=== PATIENT | female | born 1945 | race Caucasian/White ===

== ENCOUNTER 2018-01-31 13:47 | Emergency (ER) | payer MEDICARE ==
[~2018-01-31] VITALS: Ht 172.7 cm; Wt 72.7 kg
[2018-01-31 14:20] VITALS: Ht 172.7 cm; Wt 72.7 kg
[2018-01-31] MEDS ORDERED: POTASSIUM99 M1 PO (14:25)
[2018-01-31] MEDS ORDERED: NIACIN100 MG PO (14:27)
[2018-01-31] MEDS ORDERED: METOPROLOL TART25 MG PO (14:27)
[2018-01-31] MEDS ORDERED: ASPIRIN81 MG PO (14:28)
[2018-01-31] MEDS ORDERED: SYNTHROID50 MCG PO (14:28)
[2018-01-31] MEDS ORDERED: HYDROCODONE-APA1 TAB PO (16:29)
[2018-01-31 17:22] VITALS: BP 129/76
== END 2018-01-31 17:00 | disposition home or self-care (01) ==
LOC: D.ER 13:47
DX: S82.892A Other fracture of left lower leg, initial encounter for closed fracture (principal); W18.31XA Fall on same level due to stepping on an object, initial encounter; Y93.89 Activity, other specified; Y92.481 Parking lot as the place of occurrence of the external cause; I10 Essential (primary) hypertension; F17.200 Nicotine dependence, unspecified, uncomplicated

== ENCOUNTER → 2018-02-07 14:21 | Outpatient (CLI) | payer MEDICARE ==
[2018-01-31 14:20] VITALS: BMI 24.3
[~2018-02-07 14:21] MED LIST: ASPIRIN81 MG PO; HYDROCODONE-APA1 TAB PO; METOPROLOL TART25 MG PO; NIACIN100 MG PO; POTASSIUM99 M1 PO; SYNTHROID50 MCG PO
== END | disposition home or self-care (01) ==
LOC: D.US 14:21
DX: M25.572 Pain in left ankle and joints of left foot (principal); R22.42 Localized swelling, mass and lump, left lower limb

== ENCOUNTER → 2018-05-31 13:16 | Outpatient (CLI) | payer MEDICARE ==
[2018-01-31 14:20] VITALS: BMI 24.3
[2018-05-31 13:51] LABS: BASOPHILS 0.4 % (0-2); EOSINOPHILS 3.2 % (0-7); HEMATOCRIT 44.8 % (36.0-48.0); HEMOGLOBIN 15.2 g/dL (12-16); IMMATURE GRANULOCYTES 0.2 % (0-5); LYMPHOCYTES 35.4 % (15-50); MCH 29.5 pg (26.0-34.0); MCHC 33.9 g/dL (31.0-37.0); MCV 86.8 fL (80.0-100.0); MEAN PLATELET VOLUME 10.5 fL (7.4-10.4); MONOCYTES 5.5 % (2-11); NEUTROPHILS 55.3 % (40-80); PLATELET COUNT 172 10x3/uL (130-400); RBC 5.16 10x6/uL (4.00-5.40); WBC 5.1 10x3/uL (4.8-10.8)
[2018-05-31 14:12] LABS: ALBUMIN 3.2 g/dL (3.4-5.0); ANION GAP 8.4 mmol/L (8-16); BILIRUBIN - TOTAL 0.76 mg/dL (0.2-1.3); CALCIUM 8.8 mg/dL (8.5-10.1); CARBON DIOXIDE 31.4 mmol/L (21.0-32.0); CHOL - HDL RATIO 3.3 ratio (2.3-4.1); CREATININE - SERUM 0.9 mg/dL (0.6-1.3); LDL-HDL RATIO 1.7 ratio (1.5-3.5); POTASSIUM - SERUM 3.8 mmol/L (3.5-5.1); PROTEIN - SERUM 8.3 g/dL (6.4-8.2); THYROID STIMULATING HORMONE 1.42 uIU/mL (0.36-3.74)
== END | disposition home or self-care (01) ==
LOC: D.LAB 13:16
PROVIDERS: Family Medicine
DX: I25.10 Atherosclerotic heart disease of native coronary artery without angina pectoris (principal); M18.0 Bilateral primary osteoarthritis of first carpometacarpal joints; D64.9 Anemia, unspecified; J44.9 Chronic obstructive pulmonary disease, unspecified; E03.9 Hypothyroidism, unspecified; I10 Essential (primary) hypertension; E78.5 Hyperlipidemia, unspecified

== ENCOUNTER → 2019-02-07 12:01 | Outpatient (CLI) | payer MEDICARE ==
[2018-01-31 14:20] VITALS: BMI 24.3
[2019-02-07 12:59] LABS: BASOPHILS 0.2 % (0-2); EOSINOPHILS 1.2 % (0-7); HEMATOCRIT 42.5 % (36.0-48.0); HEMOGLOBIN 14.8 g/dL (12-16); LYMPHOCYTES 34.1 % (15-50); MCH 30.1 pg (26.0-34.0); MCHC 34.8 g/dL (31.0-37.0); MCV 86.4 fL (80.0-100.0); MEAN PLATELET VOLUME 10.1 fL (7.4-10.4); MONOCYTES 5.7 % (2-11); NEUTROPHILS 58.8 % (40-80); PLATELET COUNT 173 10x3/uL (130-400); RBC 4.92 10x6/uL (4.00-5.40); RDW 12.8 % (11.5-14.5); WBC 5.7 10x3/uL (4.8-10.8)
[2019-02-07 13:37] LABS: ALBUMIN 3.2 g/dL (3.4-5.0); ANION GAP 11.2 mmol/L (8-16); BILIRUBIN - TOTAL 0.49 mg/dL (0.2-1.3); CALCIUM 8.8 mg/dL (8.5-10.1); CARBON DIOXIDE 29.5 mmol/L (21.0-32.0); CHOL - HDL RATIO 5.5 ratio (2.3-4.1); CREATININE - SERUM 0.8 mg/dL (0.6-1.3); LDL-HDL RATIO 3.5 ratio (1.5-3.5); POTASSIUM - SERUM 3.7 mmol/L (3.5-5.1); T4 THYROXIN - FREE 1.32 ng/dL (0.76-1.46); T4 THYROXINE 8.4 ug/dL (4.7-13.3); THYROID STIMULATING HORMONE 2.41 uIU/mL (0.36-3.74)
== END | disposition home or self-care (01) ==
LOC: D.RAD 12:01
PROVIDERS: ATTEND Family Medicine
DX: J44.9 Chronic obstructive pulmonary disease, unspecified (principal); D64.9 Anemia, unspecified; I25.10 Atherosclerotic heart disease of native coronary artery without angina pectoris; I10 Essential (primary) hypertension; E55.9 Vitamin D deficiency, unspecified